=== PATIENT | female | born 1960 | race African-American/Black ===

== ENCOUNTER 2018-12-22 20:05 | Emergency (ER) | payer OTHER ==
[~2018-12-22] VITALS: Ht 154.9 cm; Wt 63.5 kg
--- NOTE | 2018-12-22 20:25 | NUR ---
ED Nurse Note: Patient walked in to ER c/o lower abdominal pain 11/01, states that has burning sensations in to her vagina. Patient presented anxious, crying, AAO x4, VSS at this time.
[2018-12-22 20:35] VITALS: BP 124/84
[2018-12-22 21:04] LABS: APPEARANCE,URINE CLOUDY; BILIRUBIN, URINE NEGATIVE (NEGATIVE); GLUCOSE, URINE (UA) NEGATIVE (NEGATIVE); KETONES,URINE 4+ (NEGATIVE); LEUKOCYTE ESTERASE ,URINE 3+ (NEGATIVE); NITRITE,URINE POSITIVE (NEGATIVE); PH,URINE 6.5 (4.5-8.0); PROTEIN,URINE 3+ (NEGATIVE); UROBILINOGEN,URINE 1 MG/DL (0.0-1.0)
[2018-12-22 21:07] LABS: COLOR,URINE YELLOW
[2018-12-22] MEDS ORDERED: Morphine Sulfate 2mg/ml Inj(IV/IM USE ONLY) IVP ONE (21:15)
--- NOTE | 2018-12-22 21:27 | Emergency Room Report ---
History of Present Illness General Chief Complaint: Female Urogenital Problems Source: Patient Present Illness HPI 58-year-old female presents to the emergency department complaining of 9 out of 10 severity lower abdominal pain, bloated sensation, dysuria and urinary frequency. Patient suspects that she may have a UTI. Patient denies low back pain, fevers or chills. Patient reports that she has been having an ongoing issue for over a month with a newly diagnosed bladder cyst. Patient reports she had camera evaluation performed by her urologist she was told this is a a benign condition. Patient states that she is having difficulty at home controlling pain with medications that have been prescribed to her for her symptoms. Patient states they keep prescribing her the same medication which is Harrison and it is not working. Patient denies hematuria. She denies nausea or vomiting. Patient denies vaginal pain, vaginal discharge or bleeding. Patient denies any other aggravating or relieving factors at this time. Allergies: Coded Allergies: No Known Allergies (Unverified , 12/22/18) Patient History Past Medical History: see triage record Past Surgical History: none Pertinent Family History: none Now: No Reviewed Nursing Documentation: PMH: Agreed; PSxH: Agreed Nursing Documentation-PMH Hx Hypertension: Yes Review of Systems All Other Systems: negative except mentioned in HPI Physical Exam Vital Signs Date Time Temp Pulse Resp B/P (MAP) Pulse Ox O2 Delivery O2 Flow Rate FiO2 12/22/18 20:22 98.6 92 22 124/84 (97) 95 Room Air Sp02 EP Interpretation: reviewed, normal General Appearance: no apparent distress, alert, GCS 15, non-toxic Head: normocephalic, atraumatic Eyes: bilateral eye normal inspection, bilateral eye PERRL ENT: hearing grossly normal, normal voice Neck: full range of motion Respiratory: lungs clear, normal breath sounds, speaking full sentences Cardiovascular #1: regular rate, rhythm Gastrointestinal: normal bowel sounds, soft, non-distended, no guarding, tenderness - midline lower abdominal ttp diffusely. NO localized RLQ ttp. no rebound Rectal: deferred Genitourinary: normal inspection, no CVA tenderness Musculoskeletal: back normal, gait/station normal, normal range of motion, non- tender Neurologic: alert, oriented x3, responsive, motor strength/tone normal, sensory intact, normal gait, speech normal, grossly normal Psychiatric: judgement/insight normal Lymphatic: no adenopathy Medical Decision Making PA Attestation Dr. Landeros is my supervising Physician whom patient management has been discussed with. Diagnostic Impression: Primary Impression: UTI (urinary tract infection) Qualified Codes: N30.01 - Acute cystitis with hematuria Additional Impressions: history of bladder mass Pain ER Course 58-year-old female presents to the emergency department complaining of 9 out of 10 severity lower abdominal pain, bloated sensation, dysuria and urinary frequency. Patient suspects that she may have a UTI. Patient denies low back pain, fevers or chills. Patient reports that she has been having an ongoing issue for over a month with a newly diagnosed bladder cyst after receiving multiple imaging studies mostly at [facility] in [place]. Patient reports she had camera evaluation performed by her urologist she was told this is a a benign condition. Patient states that she is having difficulty at home controlling pain with medications that have been prescribed to her for her symptoms. Patient states they keep prescribing her the same medication which is Harrison and it is not working. Patient denies hematuria. She denies nausea or vomiting. Patient denies vaginal pain, vaginal discharge or bleeding. Patient denies any other aggravating or relieving factors at this time. Ddx considered but are not limited to UTi , Pyelo, STI, Stone, Cystitis, Cancer , obstruction, acute abdomen, or Perforation just to name a few. Vital signs: are WNL, pt. is afebrile H&PE are most consistent with UTI --physical exam does not demonstrate acute abdomen patient is in mild distress however physical exam reveals a soft abdomen without signs of peritonitis. ORDERS: - UA labs are attached --they are nitrite positive and demonstrate moderate bacterial infection. ED INTERVENTIONS: -Harrison PO -Pyridium PO -Macrobid PO -4mg Morphine IM Pain management was a goal prior to discharge. Discussed with this patient importance of her follow-up and establishing herself with 1 prescribing provider as she has multiple feels in the same month for small quantities on cures. -I do not identify an emergent condition at this time. With current presentation , pt. is stable for close outpatient follow up and conservative treatment. D/ w pt. to return promptly to ED with worsening or new symptoms.- Pt. verbalizes' understanding and agreement with proposed treatment plan. DISCHARGE: At this time pt. is stable for d/c to home. Will provide printed patient care instructions, and any necessary prescriptions. Care plan and follow up instructions have been discussed with the patient prior to discharge. Labs Test 12/22/18 20:35 Urine Color Yellow Urine Appearance Cloudy Urine pH 6.5 (4.5-8.0) Urine Specific Brave 1.015 (1.005-1.035) Urine Protein 3+ (NEGATIVE) Urine Glucose (UA) Negative (NEGATIVE) Urine Ketones 4+ (NEGATIVE) Urine Blood 5+ (NEGATIVE) Urine Nitrite Positive (NEGATIVE) Urine Bilirubin Negative (NEGATIVE) Urine Urobilinogen 1 MG/DL (0.0-1.0) Urine Leukocyte Esterase 3+ (NEGATIVE) Urine RBC Tntc /HPF (0 - 2) Urine WBC Tntc /HPF (0 - 2) Urine Squamous Epithelial Cells Moderate /LPF (NONE/OCC) Urine Bacteria Many /HPF (NONE) Last Vital Signs Date Time Temp Pulse Resp B/P (MAP) Pulse Ox O2 Delivery O2 Flow Rate FiO2 12/22/18 20:35 98.6 22 124/84 95 Room Air 12/22/18 20:22 92 Disposition: HOME, SELF-CARE Condition: Stable Scripts Oxycodone/Acetaminophen 5-325* (PERCOCET 5-325 MG TABLET*) 1 Each Tablet 1 TAB ORAL Q8H PRN for For Pain, #12 TAB 0 Refills Prov: Ashli Ford 12/22/18 Phenazopyridine Hcl* (PYRIDIUM*) 100 Mg Tablet 100 MG ORAL THREE TIMES A DAY for 3 Days, #9 TAB Prov: Ashli Ford 12/22/18 Nitrofurantoin Monohyd/M-Cryst* (MACROBID 100 MG*) 100 Mg Capsule 100 MG ORAL EVERY 12 HOURS for 7 Days, #14 CAP Prov: sAhli Ford 12/22/18 Patient Instructions: Urinary Tract Infection Additional Instructions: Take medications as directed. Follow up with a Primary Care Provider or UROLOGIST in 3-5 days, even if your symptoms have resolved. --Please review list of primary care clinics, if you do not already have a primary care provider Return sooner to ED if new symptoms occur, or current symptoms become worse. Do not drink alcohol, drive, or operate heavy machinery while taking Harrison as this may cause drowsiness. - Please note that this Emergency Department Report was dictated using [email or web address] technology software, occasionally this can lead to erroneous entry secondary to interpretation by the dictation equipment. Ashli Ford Dec 22, 2018 21:27
[2018-12-22] MEDS ORDERED: Phenazopyridine 200mg tab ORAL ONE (21:45)
[2018-12-22] MEDS ORDERED: NITROFURANTOIN100 M2 ORAL (21:46)
[2018-12-22] MEDS ORDERED: PERCOCET 5-3251 EACH ORAL (21:46)
[2018-12-22] MEDS ORDERED: PHENAZOPYRIDIN100 MG ORAL (21:46)
[2018-12-22] MEDS ORDERED: HYDROcodone/Acetamin 5/325 tab ORAL ONE (22:15)
[2018-12-22 22:26] VITALS: BP 124/84
--- NOTE | 2018-12-22 22:27 | NUR ---
ED Nurse Note: Pt cleared by health care Provider for discharge. DC instructions/prescription was given and explained to pt and verbalized understanding of teachings. All medical deviecs such as ID band removed. Pt is AAO x4, ambulatory and left with all personal belongings.
== END 2018-12-23 00:30 | disposition home or self-care (01) ==
LOC: EMR 12-23 00:30
DX: N30.01 Acute cystitis with hematuria (principal); I10 Essential (primary) hypertension; N32.89 Other specified disorders of bladder
CPT/HCPCS: 81003; 87086; 96374; J2270; Z7502; 99284